=== PATIENT | male | born 1990 | race Caucasian/White ===

== ENCOUNTER 2016-06-19 06:36 | Emergency (ER) | payer OTHER ==
--- NOTE | 2016-06-19 07:13 | PDOC ---
History of Present Illness - General Chief Complaint: Pain Stated Complaint: STOMACH PAIN Time Seen by Provider: 06/19/16 07:13 History Source: Patient Exam Limitations: No Limitations - History of Present Illness Initial Comments: 06/19/16 07:30 Patient is a 25 year old male with no PMH who presents to ED with abdominal pain since yesterday. Patient states yesterday at 10am he developed severe diffuse abdominal pain with diarrhea. He states he had >5 episodes of diarrhea yesterday into this morning. Pain has been intermittent, but when at its worst, it is 9/10 in severity and he lies in a position due to pain. It is improved by imodium, but only intermittently. He returned from a 4 day visit to [facility] where he denies any sick contacts but did swim in a river. He denies fever, chills, nausea, vomiting, chest pain or shortness of breath. Past History - Travel Traveled outside of the country in the last 30 days: Yes If so, where?: [facility], returned 4 days ago Close contact w/someone who was outside of country & ill: No - Past Medical History Allergies/Adverse Reactions: Allergies Allergy/AdvReac Type Severity Reaction Status Date / Time No Known Allergies Allergy Verified 06/19/16 06:46 Home Medications: Ambulatory Orders No Home Medications 0 dose .ROUTE UTDICT 09/11/13 Ciprofloxacin [Cipro -] 750 mg PO BID #10 tablet 06/19/16 - Surgical History Appendectomy: Yes - Family Disease History Family Disease History: Heart Disease: Father (HTN), Respiratory: Mother (Asthma ) - Psycho/Social/Smoking Cessation Hx Suicidal Ideation: No Smoking Status: No Smoking History: Never smoked Have you smoked in the past 12 months: No Information on smoking cessation initiated: No Hx Alcohol Use: No Drug/Substance Use Hx: No Review of Systems - Review of Systems Able to Perform ROS?: Yes Is the patient limited Yi proficient: No Constitutional: Yes: Loss of Appetite. No: Chills, Fever, Night Sweats, Weakness HEENTM: No: Blurred Vision, Throat Pain, Difficulty Swallowing Respiratory: No: Cough, SOB with Exertion, Wheezing Cardiac (ROS): No: Chest Pain, Lightheadedness, Palpitations, Syncope ABD/GI: Yes: Diarrhea, Poor Appetite, Poor Fluid Intake, Abdominal cramping. No : Nausea, Vomiting : No: Burning, Dysuria Integumentary: No: Bruising, Erythema Neurological: No: Headache, Numbness, Paresthesia, Ataxia All Other Systems: Reviewed and Negative *Physical Exam - Vital Signs Last Vital Signs Temp Pulse Resp BP Pulse Ox 97.8 F 54 L 12 133/73 100 06/19/16 06:46 06/19/16 06:46 06/19/16 06:46 06/19/16 06:46 06/19/16 06:46 - Physical Exam General Appearance: Yes: Nourished, Appropriately Dressed HEENT: positive: EOMI, GLEN, Normal ENT Inspection Neck: positive: Trachea midline, Normal Thyroid, Supple Respiratory/Chest: positive: Lungs Clear, Normal Breath Sounds Cardiovascular: positive: Regular Rhythm, Regular Rate, S1, S2 Gastrointestinal/Abdominal: positive: Normal Bowel Sounds, Flat, Soft, Other ( not tender to palpation in any quadrant, no guarding or rigidity, no rebound tenderness) Rectal Exam: positive: normal exam, normal rectal tone Musculoskeletal: positive: Normal Inspection Extremity: positive: Normal Inspection, Normal Range of Motion Integumentary: positive: Normal Color, Dry, Warm Neurologic: positive: industrial relations worker II-XII NML intact, Fully Oriented, Alert, Normal Mood/ Affect, Motor Strength 5/5 ED Treatment Course - LABORATORY CBC & Chemistry Diagram: 06/19/16 08:10 06/19/16 08:10 Medical Decision Making - Medical Decision Making 06/19/16 07:52 Will give 1liter IVF for hydration. Ordered CBC, CMP as well. Will send Ciprofloxacin 750BID to patient's pharmacy. If possible patient will try to leave a stool culture with us. 06/19/16 09:10 Patient unable to provide stool sample. Sent antibiotics to pharmacy and instructed patient to keep hydrated and take imodium at appropriate intervals for symptom relief. *DC/Admit/Observation/Transfer Diagnosis at time of Disposition: Travelers' diarrhea - Discharge Dispostion Disposition: HOME Condition at time of disposition: Improved Admit: No - Prescriptions Prescriptions: Ciprofloxacin [Cipro -] 750 mg PO BID #10 tablet - Referrals Referrals: Jared oFrd MD [Primary Care Provider] - - Patient Instructions Additional Instructions: Keep yourself hydrated Followup with Dr Ford within 2-3 days for checkup If symptoms worsen, return to ED
[2016-06-19 07:22] VITALS: TEMP 97.8; BMI 26.4
--- NOTE | 2016-06-19 07:22 | PDOC ---
Attending Attestation - Resident Resident Name: John Del Valle - ED Attending Attestation I have performed the following: I have examined & evaluated the patient, The case was reviewed & discussed with the resident, I agree w/resident's findings & plan, Exceptions are as noted - HPI HPI: 25 yo M no PMH presents with diarrhea for past 1 day. He states that he recently traveled back from [facility] about 3 days ago. Denies fever, chills. He states that he may have received Hep A vaccine in the past, but is not certain. He swam in a river, but did not drink the water. No known sick contacts. He gets crampy abdominal pain and watery stools approximately every hour, but they get better with imodium. - Physicial Exam PE: GENERAL: Awake, alert, and fully oriented, in no acute distress HEAD: No signs of trauma EYES: PERRLA, EOMI, sclera anicteric, conjunctiva clear ENT: Auricles normal inspection, hearing grossly normal, nares patent, oropharynx clear without exudates. Moist mucosa NECK: Normal ROM, supple, no lymphadenopathy, JVD, or masses LUNGS: Breath sounds equal, clear to auscultation bilaterally. No wheezes, and no crackles HEART: Regular rate and rhythm, normal S1 and S2, no murmurs, rubs or gallops ABDOMEN: Soft, nontender, hyperactive bowel sounds. No guarding, no rebound. No masses EXTREMITIES: Normal range of motion, no edema. No clubbing or cyanosis. No cords, erythema, or tenderness NEUROLOGICAL: Cranial nerves II through XII grossly intact. Normal speech, normal gait SKIN: Warm, Dry, normal turgor, no rashes or lesions noted. - Medical Decision Making Based on recent travel, would treat empirically for traveler's diarrhea with cipro. If able, will have patient provide a sample for testing for ova/ parasites.
[2016-06-19] MEDS ORDERED: SODIUM CHLORIDE 1,000 ML IV STA (07:36)
[2016-06-19 08:43] LABS: BASOPHIL 0.6 % (0-2.0); EOSINOPHIL 1.8 % (0-4.5); MCH 29.3 pg (25.7-33.7); MCHC 32.9 g/dl (32.0-35.9); MEAN CELL VOLUME 88.9 fl (80-96); MEAN PLT VOLUME 9.7 fl (7.5-11.1); PLATELET COUNT 176 K/MM3 (134-434); RDW 13.7 % (11.9-15.9); WHITE BLOOD COUNT 5.2 K/mm3 (4.0-10.0)
[2016-06-19 09:05] LABS: ALBUMIN 3.9 g/dl (3.4-5.0); ANION GAP 6 (8-16); BILIRUBIN,TOTAL 1.5 mg/dL (0.2-1.0); CALCIUM 9.2 mg/dL (8.5-10.1); CO2 31 mmol/L (21-32); GLUCOSE,RANDOM 93 mg/dL (74-106); SGOT/AST 17 U/L (15-37); SGPT/ALT 18 U/L (12-78); TOT PROT 6.7 g/dl (6.4-8.2)
[2016-06-19 09:06] LABS: ALK PHOS 62 U/L (45-117)
[2016-06-19 10:01] VITALS: BP 116/57; PULSE 50
== END 2016-06-19 10:01 | disposition home or self-care (01) ==
LOC: JER 06:36
PROC: 3E0337Z Introduction of Electrolytic and Water Balance Substance into Peripheral Vein, Percutaneous Approach (ICD-10-PCS; principal; 2016-06-19)
DX: A08.8 Other specified intestinal infections (principal)
CPT/HCPCS: 36415; 80053; 82272; 85025; 99284-25